=== PATIENT | male | born 1950 | race Caucasian/White ===

== ENCOUNTER → 2016-12-17 | Outpatient (CLI) | payer OTHER ==
[~2016-12-17] MED LIST: DOXA1TAB88 PO; PANT40TA PO
--- NOTE | 2016-12-17 15:03 | DIAGNOSTIC IMAGING REPORT ---
MRI OF THE BRAIN WITHOUT CONTRAST CLINICAL HISTORY: MEMORY LOSS COMPARISON STUDY: Noncontrast head CT dated 07/15/2013 FINDINGS: Sagittal T1, axial diffusion, proton density and T2 weighted axial, coronal FLAIR, and axial T1-weighted images were acquired. Patient was imaged under 0.7 Steph open MRI scanner. No intra or extra-axial mass lesions are visualized Axial diffusion-weighted images reveal no evidence of acute or subacute infarction. There is no evidence of ventricular dilatation. Proton density T2-weighted and FLAIR images reveal minor foci of increased T2 signal within the white matter, likely on a small vessel basis. There are no abnormal flow voids. IMPRESSION: No acute intracranial findings. No evidence of intracranial mass. No evidence of acute or subacute infarction. Electronically signed by: Alvin Benson M.D. 12/17/2016 3:03 PM Dictated Date/Time: 12/17/2016 9:21 AM
== END | disposition home or self-care (01) ==
LOC: C.OPENMRI 08:29
PROVIDERS: ATTEND Family Medicine
DX: R41.3 Other amnesia (principal)